=== PATIENT | male | born 1960 | race Asian ===

== ENCOUNTER 2023-12-30 07:48 | Emergency (ER) | payer OTHER, SELFPAY ==
[2023-12-30 08:01] VITALS: BP 111/71
[2023-12-30 08:32] VITALS: BMI 23.8
--- NOTE | 2023-12-30 09:21 | ED.GENMED ---
History of Present Illness
General
Chief Complaint: Musculo-Skeletal Complaint
Source: patient
Exam Limitations: none
Time Seen by Provider: 12/30/23 08:44
Nursing documentation reviewed up to this point in time: agreed with
Travel History
Have you had any contact with someone who has COVID-19?: No
Do you have any symptoms of coronavirus? Fever > 100 degrees, chills, cough, shortness of breath, sore throat, loss of taste or smell, muscle aches, or headache?: No
History of Present Illness
History of Present Illness:
Patient presents to ED secondary to persistent and right upper back pain over the past 3 days. Back pain described as sharp, nonradiating, without any associated shortness of breath, nausea, chest pain. Denies fever or chills. Denies direct
trauma. Denies recent change in level activities. Denies previous history of similar symptoms. Denies recent travel or surgery. Denies leg pain or swelling. Patient is describing pain that intermittently radiates down his right arm. Denies
loss of sensation or weakness. Patient works at home and usually states that he is sitting on a couch with his laptop on top of his knees. Yesterday, he did experience some neck pain, which was alleviated when he sat up in a chair. Of note,
patient has seen cardiology in the past secondary to dyspnea on exertion, and reports having received normal stress echocardiogram last year.
Past History
Past History
ED Past Surgical History: Appendectomy
Review of Systems
Review of Systems
Allergies reviewed?: Yes
All Other Systems: ROS reviewed and negative except as documented in HPI and ROS
Constitutional: Reports no symptoms; Denies fever
EENT: Reports no symptoms
Respiratory: Reports no symptoms; Denies trouble breathing
Cardiac: Reports no symptoms; Denies chest pain
ABD/GI: Reports no symptoms; Denies nausea
: Denies incontinence
Musculoskeletal: Reports back pain
Skin: Reports no symptoms
Neurological: Reports no symptoms; Denies dizzy, weakness or numbness
Phy Exam
Physical Exam
Physical Exam:
Physical Exam
General: no apparent distress, not acutely ill. afebrile
Head: nc/at. eomi
Neck: supple. normal range of motion. mild tenderness to palpation at base of neck at level of C7-T1, without midline tenderness/deformity.
Abdomen: normal bowel sounds. not tender.
Back: mild right upper back tenderness to palpation, without ecchymosis/swelling/warmth.
Neuro: alert and oriented. no focal neurological deficits
Skin: no rash
Psychiatric: well kept. interactive and cooperative
Extremities: no edema. no calf tenderness.
Course
Orders/Labs/Results
Orders:
Orders
12/30/23 09:04
Dexamethasone Sod Phosphate [Decadron] 10 mg IV NOW STA
Ketorolac [Toradol] 30 mg IV NOW STA
CR Chest - 2 Views Urgent
Comment:
Reason For Exam: right upper back pain
12/30/23 09:12
Basic Metabolic Panel Urgent
Complete Blood Count/No Diff Urgent
D-Dimer Urgent
12/30/23 09:31
CR Cervical Spine 2 or 3 Vw Urgent
Reason For Exam: base of neck pain
Abnormal Lab Results
12/30/23
09:12
WBC 3.7 L 10^3/uL
(4.8-10.8)
RBC 4.39 L 10^6/uL
(4.70-6.10)
MCH 32.6 H pg
(27.0-31.0)
BUN 25 H mg/dl
(9-20)
12/30/23 09:12
12/30/23 09:12
Vital Signs
Initial and Last Documented VS:
Initial Vital Signs
Temp Pulse Resp BP Pulse Ox
98.1 F 68 16 111/71 98
12/30/23 08:01 12/30/23 08:01 12/30/23 08:01 12/30/23 08:01 12/30/23 08:01
Last Documented Vital Signs
Temp Pulse Resp BP Pulse Ox
98.1 F 69 20 129/76 98
12/30/23 08:01 12/30/23 10:00 12/30/23 10:00 12/30/23 10:00 12/30/23 10:00
MDM/Problems Addressed
MDM/Problems Addressed:
Pt with an unremarkable workup in ED, including blood work, EkG, and CXR. D-dimer also normal.
History/exam concerning for likely musculoskeletal pain. Advised warm compress, NSAID, along with PCP f/u as outpatient.
*Critical Care Note
Total Time (30-74mins, 75-104mins- exclusive of procedures): Not Applicable
ED Attending Note
-
Portions of this chart may have been created with voice recognition software.� Occasional wrong word or��sound alike� substitutions may have occurred due to the inherent limitations of voice recognition software.
Discharge Plan
Departure
Patient Disposition: Home (Routine Discharge)
Date of Disposition: 12/30/23
Time of Disposition: 10:10
Patient with high blood pressure during this ER visit?: No
Covid-19: Not Applicable
Discharge Problem:
Back pain
Instructions: Back Pain
Prescriptions:
No Action
No Current Medications
0
Referrals:
Jair Corona MD [Family Provider] -
Activity Restrictions/Additional Instructions:
As discussed, please follow-up with your primary care physician for further evaluation and treatment.
Interventions
Interventions:
*Risk Screen - Suicide Last Done: 12/30/23 08:32
*General Assessment Last Done: 12/30/23 08:32
*Neglect/Abuse Screening Last Done: 12/30/23 08:32
ED- Fall Risk Assessment Last Done: 12/30/23 08:32
*ED COVID-19 Vaccine History Last Done: 12/30/23 08:01
*Nursing Disposition Last Done: 12/30/23 10:40
ED-Musculoskeletal Assessment Last Done: 12/30/23 08:32
Discharge Date and Time
Discharge Date/Time: 12/30/23 10:41
[2023-12-30 09:22] LABS: Hematocrit 40.5 % (39.0-52.0); Hemoglobin 14.3 g/dL (13.0-18.0); Mean Corp Hgb Conc. 35.3 g/dL (33.0-37.0); Mean Corpuscular Hgb 32.6 pg (27.0-31.0); Mean Corpuscular Volume 92.3 fL (80.0-94.0); Mean Platelet Volume 9.9 fL (7.4-10.4); Platelet Count 141 10^3/uL (130-400); Red Blood Cell Count 4.39 10^6/uL (4.70-6.10); Red Cell Dist. Width 12.5 % (11.5-14.5); White Blood Cell Count 3.7 10^3/uL (4.8-10.8)
[2023-12-30] MEDS: DECADRON 10 MG IV (09:23)
[2023-12-30] MEDS: TORADOL 30 MG IV (09:23)
[2023-12-30 09:35] LABS: D-Dimer < 0.27 ug/mlFEU (0.00-0.50)
[2023-12-30 09:47] LABS: Blood Urea Nitrogen 25 mg/dl (9-20); Calcium 9.2 mg/dl (8.4-10.2); Carbon Dioxide 28 mmol/L (22-30); Chloride 104 mmol/L (98-107); Estimated Creatinine Clearance 93 ml/min; Glucose 78 mg/dl (70-99); Potassium 4.5 mmol/L (3.5-5.1); Sodium 136 mmol/L (135-145); eGFR > 60.00
[2023-12-30 10:00] VITALS: BP 129/76
== END 2023-12-30 10:41 | disposition home or self-care (01) ==
LOC: EMR 07:48
PROVIDERS: EMERGENCY PHYSICIAN Emergency Medicine; FAMILY PHYSICIAN Family Medicine
DX: M54.9 Dorsalgia, unspecified (principal)
CPT/HCPCS: 99283; 96374; 96375; 71046; 72040; 80048; 85027; 85379